=== PATIENT | male | born 1950 | race Asian ===

== ENCOUNTER 2020-12-07 19:52 | Inpatient (IN) | payer MEDICARE ==
[~2020-12-07] VITALS: Ht 180.3 cm; Wt 83.0 kg
[2020-12-07] MEDS ORDERED: MORPHINE SULF INJ 2 MG/ML SYRINGE 1ML IV PRN (20:00)
[2020-12-07] MEDS ORDERED: NITROGLYCERIN 0.4 MG SL TAB SL PRN (20:00)
[2020-12-07] MEDS ORDERED: REMDESIVIR PER PHARMACY 0 ML IV SCH (20:00)
[2020-12-07] MEDS ORDERED: METO25TA36 PO (20:17)
[2020-12-07] MEDS ORDERED: LOSA25TA38 PO (20:17)
[2020-12-07] MEDS ORDERED: LANS30CA57 PO (20:17)
[2020-12-07] MEDS ORDERED: TICA90TA PO (20:17)
[2020-12-07] MEDS ORDERED: ASPI-231 PO (20:17)
[2020-12-07 21:00] VITALS: BP 123/78
[2020-12-07] MEDS ORDERED: REMDESIVIR 200 MG in NS 210ml LOADING DOSE ADULT IV ONE (21:30)
[2020-12-07] MEDS: LOSARTAN POTASSIUM 25 MG TAB PO SCH (22:00)
[2020-12-07] MEDS: METOPROLOL SUCCINATE XL 50 MG TAB PO SCH (22:00)
[2020-12-07] MEDS ORDERED: ENOXAPARIN SOD 40 MG/0.4 ML SYRINGE SC SCH (22:00)
[2020-12-07] MEDS: ALBUTEROL SULF HFA 90MCG INH 200DOSE IN PRN (22:31)
[2020-12-07] MEDS: BUDESONIDE (INHALATION) 180 MCG IH IN SCH (22:31)
[2020-12-07 22:35] LABS: Basophils # (auto) 0 10 ^3/uL (0-0.2); Basophils % (auto) 0.4 % (0.0-2.0); Eosinophils # (auto) 0.1 10 ^3/uL (0-0.8); Eosinophils % (auto) 1.6 % (0.0-7.0); Hematocrit 41.3 % (41.0-53.0); Hemoglobin 14.4 g/dL (13.5-17.5); Lymphocytes % (auto) 21.6 % (10.0-50.0); Mean Corpuscular Hemoglobin 31.8 pg (28.0-32.0); Mean Corpuscular Hgb Conc. 34.8 g/dL (32.0-36.0); Mean Corpuscular Volume 91.4 fL (80.0-100.0); Monocytes # (auto) 0.7 10 ^3/uL (0-1.3); Monocytes % (auto) 15.2 % (0.0-12.0); Neutrophils # (auto) 2.7 10 ^3/uL (1.6-8.6); Neutrophils % (auto) 61.2 % (37.0-80.0); Nucleated Red Blood Cells % 0.1 %; Platelet Count (auto) 114 10^3/uL (140-450); Red Blood Cells 4.52 10^6/uL (4.5-5.90); Red Cell Distribution Width 14.1 % (11.8-14.3); White Blood Cell 4.4 10^3/uL (4.4-10.8)
[2020-12-07 22:53] LABS: Albumin 3.3 g/dL (3.4-5.0); Calcium 8.3 mg/dL (8.5-10.1); Magnesium 2.2 mg/dL (1.6-2.6); Potassium 3.7 mmol/L (3.5-5.1)
[2020-12-07 23:03] LABS: BUN/Creatinine Ratio 19.3; Bilirubin, Total 0.6 mg/dL (0.2-1.0); CRP High Sensitivity 1.47 mg/dL (< 0.3); Total Protein 7.1 g/dL (6.4-8.2)
[2020-12-07] MEDS: SODIUM CHLORIDE 0.9% 1,000 ML IV SCH (23:12)
[2020-12-08] VITALS: BP 134/76
[2020-12-08 00:38] LABS: Urine Bacteria FEW /hpf (None Seen); Urine Blood Negative /uL (Negative); Urine Mucus FEW (None Seen); Urine Specific Gravity 1.019 (1.001-1.035); Urine WBC <1 /hpf (0 - 3)
[2020-12-08 06:02] LABS: Basophils # (auto) 0 10 ^3/uL (0-0.2); Basophils % (auto) 0.2 % (0.0-2.0); Eosinophils # (auto) 0 10 ^3/uL (0-0.8); Eosinophils % (auto) 0.6 % (0.0-7.0); Hematocrit 43.4 % (41.0-53.0); Hemoglobin 15.1 g/dL (13.5-17.5); Lymphocytes # (auto) 1.1 10 ^3/uL (0.4-5.4); Lymphocytes % (auto) 23.1 % (10.0-50.0); Mean Corpuscular Hemoglobin 31.6 pg (28.0-32.0); Mean Corpuscular Hgb Conc. 34.7 g/dL (32.0-36.0); Mean Corpuscular Volume 90.9 fL (80.0-100.0); Monocytes # (auto) 0.7 10 ^3/uL (0-1.3); Monocytes % (auto) 14.4 % (0.0-12.0); Neutrophils % (auto) 61.7 % (37.0-80.0); Nucleated Red Blood Cells % 0.2 %; Platelet Count (auto) 116 10^3/uL (140-450); Red Blood Cells 4.78 10^6/uL (4.5-5.90); Red Cell Distribution Width 14.2 % (11.8-14.3); White Blood Cell 4.8 10^3/uL (4.4-10.8)
[2020-12-08 06:56] LABS: Potassium 3.8 mmol/L (3.5-5.1)
[2020-12-08 07:06] LABS: Albumin 3.3 g/dL (3.4-5.0); BUN/Creatinine Ratio 15.9; Bilirubin, Total 0.8 mg/dL (0.2-1.0); Total Protein 7.1 g/dL (6.4-8.2)
[2020-12-08] MEDS: BUDESONIDE (INHALATION) 180 MCG IH IN SCH ×2 (07:06→20:35)
[2020-12-08] MEDS: ALBUTEROL SULF HFA 90MCG INH 200DOSE IN PRN ×2 (07:06→20:35)
[2020-12-08 08:23] VITALS: BP 98/69
[2020-12-08] MEDS: ASCORBIC ACID 1,000 MG TAB PO SCH (09:35)
[2020-12-08] MEDS: TICAGRELOR 90 MG TAB PO SCH ×2 (09:35→21:52)
[2020-12-08] MEDS: ASPirin-EC 81 mg tab PO SCH (09:35)
[2020-12-08] MEDS: ZINC SULFATE 220mg CAP or TAB PO SCH (09:35)
[2020-12-08] MEDS: DexAMETHasone SOD PHOS 10MG/1ML VIAL INJ IV SCH (09:35)
[2020-12-08] MEDS: FAMOTIDINE (10MG/ML) 2ML VL IV SCH (09:43)
[2020-12-08] MEDS: LOSARTAN POTASSIUM 25 MG TAB PO SCH (09:43)
[2020-12-08] MEDS: CHOLECALCIFEROL (VITD3) 2,000 UNIT CAP PO SCH (09:44)
[2020-12-08] MEDS: METOPROLOL SUCCINATE XL 50 MG TAB PO SCH (09:44)
[2020-12-08] MEDS ORDERED: AZITHROMYCIN 500MG/ 250ML 250 ML IV SCH (10:00)
[2020-12-08] MEDS: REMDESIVIR 100mg 100 MG in SODIUM CHL 0.9% 230 ML IV SCH (15:01)
[2020-12-08 15:51] VITALS: BP 130/72
[2020-12-08] MEDS: SODIUM CHLORIDE 0.9% 1,000 ML IV SCH (16:33)
[2020-12-09] VITALS: BP 120/74
[2020-12-09 06:24] LABS: Basophils # (auto) 0 10 ^3/uL (0-0.2); Basophils % (auto) 0.1 % (0.0-2.0); Eosinophils # (auto) 0 10 ^3/uL (0-0.8); Hematocrit 41.5 % (41.0-53.0); Hemoglobin 14.5 g/dL (13.5-17.5); Lymphocytes # (auto) 0.8 10 ^3/uL (0.4-5.4); Lymphocytes % (auto) 15.7 % (10.0-50.0); Mean Corpuscular Hemoglobin 31.5 pg (28.0-32.0); Mean Corpuscular Volume 90.2 fL (80.0-100.0); Monocytes # (auto) 0.7 10 ^3/uL (0-1.3); Monocytes % (auto) 12.5 % (0.0-12.0); Neutrophils # (auto) 3.7 10 ^3/uL (1.6-8.6); Neutrophils % (auto) 71.7 % (37.0-80.0); Nucleated Red Blood Cells % 0.3 %; Platelet Count (auto) 131 10^3/uL (140-450); Red Blood Cells 4.61 10^6/uL (4.5-5.90); Red Cell Distribution Width 13.8 % (11.8-14.3); White Blood Cell 5.2 10^3/uL (4.4-10.8)
[2020-12-09 06:49] LABS: Albumin 3.3 g/dL (3.4-5.0); Calcium 8.3 mg/dL (8.5-10.1); Potassium 4.2 mmol/L (3.5-5.1)
[2020-12-09 07:00] LABS: BUN/Creatinine Ratio 23.6; Bilirubin, Total 0.8 mg/dL (0.2-1.0); Total Protein 6.9 g/dL (6.4-8.2)
[2020-12-09 08:00] VITALS: BP 99/64
[2020-12-09] MEDS: ALBUTEROL SULF HFA 90MCG INH 200DOSE IN PRN (08:45)
[2020-12-09] MEDS: BUDESONIDE (INHALATION) 180 MCG IH IN SCH (08:45)
[2020-12-09] MEDS: SODIUM CHLORIDE 0.9% 1,000 ML IV SCH (09:17)
[2020-12-09] MEDS: FAMOTIDINE (10MG/ML) 2ML VL IV SCH (09:32)
[2020-12-09] MEDS: ASPirin-EC 81 mg tab PO SCH (09:32)
[2020-12-09] MEDS: ZINC SULFATE 220mg CAP or TAB PO SCH (09:32)
[2020-12-09] MEDS: TICAGRELOR 90 MG TAB PO SCH (09:32)
[2020-12-09] MEDS: DexAMETHasone SOD PHOS 10MG/1ML VIAL INJ IV SCH (09:32)
[2020-12-09] MEDS: ASCORBIC ACID 1,000 MG TAB PO SCH (09:33)
[2020-12-09] MEDS: CHOLECALCIFEROL (VITD3) 2,000 UNIT CAP PO SCH (09:33)
[2020-12-09] MEDS ORDERED: METOPROLOL SUCCINATE XL 50 MG TAB PO SCH (10:00)
[2020-12-09] MEDS: REMDESIVIR 100mg 100 MG in SODIUM CHL 0.9% 230 ML IV SCH (14:57)
[2020-12-09 14:59] VITALS: BP 99/64
[2020-12-09 16:00] VITALS: BP 117/60
== END 2020-12-09 16:30 | disposition home or self-care (01) | DRG 871 ==
LOC: TELE-EAST 19:52 → EEVIPCON 19:52
PROVIDERS: ADMIT Nurse Practitioner Acute Care; ATTEND Internal Medicine
PROC: XW033E5 Introduction of Remdesivir Anti-infective into Peripheral Vein, Percutaneous Approach, New Technology Group 5 (ICD-10-PCS; principal; 2020-12-07)
DX: A41.89 Other specified sepsis (principal); U07.1 COVID-19; J96.01 Acute respiratory failure with hypoxia; J12.82 Pneumonia due to coronavirus disease 2019; E78.5 Hyperlipidemia, unspecified; N18.2 Chronic kidney disease, stage 2 (mild); I25.10 Atherosclerotic heart disease of native coronary artery without angina pectoris; D69.6 Thrombocytopenia, unspecified; Z79.82 Long term (current) use of aspirin; Z79.899 Other long term (current) drug therapy; Z95.5 Presence of coronary angioplasty implant and graft; Z79.02 Long term (current) use of antithrombotics/antiplatelets; Z88.2 Allergy status to sulfonamides
CPT/HCPCS: 36415; 71250; 80053; 81001; 82306; 82728; 83036; 83605; 83615; 83735; 84443; 85025; 85379; 86141; 87040; 94640; G0378; J1100; J3490

== ENCOUNTER 2020-12-10 13:45 | Outpatient (CLI) | payer MEDICARE ==
[~2020-12-10 13:45] MED LIST: ASPI-231 PO; LANS30CA57 PO; LOSA25TA38 PO; METO25TA36 PO; TICA90TA PO
[2020-12-10 14:45] VITALS: BP 125/67
[2020-12-10 15:00] VITALS: BP 113/61
[2020-12-10] MEDS ORDERED: REMDESIVIR 100mg 100 MG in SODIUM CHL 0.9% 230 ML IV ONE (15:00)
[2020-12-10 15:45] VITALS: BP 121/65
[2020-12-11] MEDS ORDERED: REMDESIVIR 100mg 100 MG in SODIUM CHL 0.9% 230 ML IV ONE (12:30)
[2020-12-11 12:44] VITALS: BP 123/64
[2020-12-11 13:15] VITALS: BP 123/63
[2020-12-11 13:45] VITALS: BP 117/61
== END 2020-12-10 16:09 | disposition home or self-care (01) ==
LOC: ER 13:45
PROVIDERS: ATTEND Internal Medicine
DX: U07.1 COVID-19 (principal); J96.01 Acute respiratory failure with hypoxia; J12.82 Pneumonia due to coronavirus disease 2019; I25.10 Atherosclerotic heart disease of native coronary artery without angina pectoris; N18.2 Chronic kidney disease, stage 2 (mild); D69.6 Thrombocytopenia, unspecified; Z79.899 Other long term (current) drug therapy; Z79.82 Long term (current) use of aspirin; Z79.02 Long term (current) use of antithrombotics/antiplatelets; Z95.5 Presence of coronary angioplasty implant and graft